=== PATIENT | female | born 1985 | race Caucasian/White ===

== ENCOUNTER → 2016-05-30 | Outpatient (CLI) | payer BC ==
[~2016-05-30] MED LIST: ASCO10006 PO; CEPH-507 PO; DESO1TAB9 PO; LORA10TA76 PO; MULT-954 PO; PHEN-640 PO; PREN1TAB79 PO; SMTR50T
--- NOTE | 2016-05-30 12:31 | Diagnostic Imaging Report ---
PROCEDURE: US PELVIC (NON OB) TECHNIQUE: Multiple real-time grayscale images were obtained over the pelvis in various projections transabdominally. IMPRESSION: Menorrhagia and dyspareunia. FINDINGS: Uterus measures 7.7 x 2.3 x 2.5 cm. Endometrial stripe measures 4 mm. No endometrial or myometrial masses. No evidence of cervical cyst. The right ovary measures 3.3 x 1 x 1 cm. The left ovary measures 3.2 x 1.3 x 1.4 cm. There is normal blood flow to both ovaries. There is a trace of free fluid in the cul-de-sac. IMPRESSION: Trace of free fluid in the cul-de-sac likely physiologic in nature. No other abnormalities demonstrated. Dictated by: Dictated on workstation # [id number]
== END ==
LOC: RAD 10:59
PROVIDERS: ATTEND Obstetrics & Gynecology
DX: R10.2 Pelvic and perineal pain (principal); N94.6 Dysmenorrhea, unspecified
CPT/HCPCS: 76856